=== PATIENT | male | born 1990 | race Caucasian/White ===

== ENCOUNTER 2018-04-07 12:08 | Emergency (ER) | payer MEDICAID ==
[~2018-04-07] VITALS: Ht 180.3 cm; Wt 73.0 kg
[~2018-04-07 12:08] MED LIST: FLUT16SP2 NS; NO HOME MEDS
[2018-04-07 12:12] VITALS: BP 117/84
[2018-04-07] MEDS ORDERED: PENI500T2 PO (12:20)
== END 2018-04-07 12:37 | disposition home or self-care (01) ==
LOC: ER 12:08
DX: K04.7 Periapical abscess without sinus (principal); Z88.1 Allergy status to other antibiotic agents; Z88.8 Allergy status to other drugs, medicaments and biological substances
CPT/HCPCS: 99283

== ENCOUNTER 2018-11-20 01:34 | Emergency (ER) | payer MEDICAID ==
[~2018-11-20] VITALS: Ht 180.3 cm; Wt 68.0 kg
[2018-11-20 01:44] VITALS: BP 123/76
[2018-11-20] MEDS ORDERED: CYCL-1 PO (02:03)
== END 2018-11-20 02:19 | disposition home or self-care (01) ==
LOC: ER 01:35
DX: M62.830 Muscle spasm of back (principal); M54.6 Pain in thoracic spine; F41.9 Anxiety disorder, unspecified; F32.9 Major depressive disorder, single episode, unspecified; F17.210 Nicotine dependence, cigarettes, uncomplicated; Z90.49 Acquired absence of other specified parts of digestive tract; Z88.1 Allergy status to other antibiotic agents; Z88.8 Allergy status to other drugs, medicaments and biological substances; Z79.899 Other long term (current) drug therapy
CPT/HCPCS: 99283

== ENCOUNTER 2020-07-06 19:30 | Emergency (ER) | payer MEDICAID ==
[~2020-07-06] VITALS: Ht 175.3 cm; Wt 78.5 kg
[~2020-07-06 19:30] MED LIST changes: +CYCL-1 PO
[2020-07-06] MEDS ORDERED: proparacaine 0.5% ophthalmic drops 15ml EACHEYE ONE (21:30)
[2020-07-06] MEDS ORDERED: ERYT1OIN6 LEFTEYE (22:18)
[2020-07-06] MEDS ORDERED: erythromycin ophthalmic ointment 1gm tube LEFTEYE ONE (22:20)
[2020-07-06 22:53] VITALS: BP 141/97
== END 2020-07-06 22:55 | disposition home or self-care (01) ==
LOC: ER 19:30
DX: H57.12 Ocular pain, left eye (principal); F41.9 Anxiety disorder, unspecified; F32.9 Major depressive disorder, single episode, unspecified; Z90.89 Acquired absence of other organs; Z88.1 Allergy status to other antibiotic agents; Z88.8 Allergy status to other drugs, medicaments and biological substances; Z79.2 Long term (current) use of antibiotics; Z79.899 Other long term (current) drug therapy
CPT/HCPCS: 99283

== ENCOUNTER 2021-03-16 11:34 | Emergency (ER) | payer MEDICAID ==
[~2021-03-16] VITALS: Ht 180.3 cm; Wt 88.6 kg
[2021-03-16 11:35] VITALS: BP 142/102
[2021-03-16] MEDS ORDERED: ketorolac tromethamine 15mg/ml inj. IM ONE (11:50)
[2021-03-16] MEDS ORDERED: ketorolac trometh. 30mg/ml inj. IM ONE (11:50)
== END 2021-03-16 12:24 | disposition home or self-care (01) ==
LOC: ER 11:34
DX: M54.31 Sciatica, right side (principal); M54.32 Sciatica, left side; F41.9 Anxiety disorder, unspecified; F32.9 Major depressive disorder, single episode, unspecified; Z90.89 Acquired absence of other organs; Z88.1 Allergy status to other antibiotic agents; Z88.8 Allergy status to other drugs, medicaments and biological substances; Z79.899 Other long term (current) drug therapy
CPT/HCPCS: 96372; 99283; J1885

== ENCOUNTER 2021-06-13 00:28 | Emergency (ER) | payer MEDICAID ==
[~2021-06-13] VITALS: Ht 175.3 cm; Wt 88.6 kg
[2021-06-13 00:33] VITALS: BP 136/86
[2021-06-13 01:20] LABS: BASOPHILS # (AUTO) 0.1 X10'3 (0-0.2); BASOPHILS % (AUTO) 0.9 % (0-1); EOSINOPHILS # (AUTO) 0.3 X10'3 (0-0.9); EOSINOPHILS % (AUTO) 3.6 % (0-6); HEMATOCRIT 41.6 % (42.0-52.0); HEMOGLOBIN 14.6 g/dl (14.0-17.9); LYMPHOCYTES # (AUTO) 2.9 X10'3 (1.1-4.8); LYMPHOCYTES % (AUTO) 35.6 % (21-51); MEAN CORPUSCULAR HEMOGLOBIN 33.8 PG (27.0-31.0); MEAN CORPUSCULAR HGB CONC 35.1 g/dL (33.0-36.5); MEAN CORPUSCULAR VOLUME 96.3 FL (78-98); MEAN PLATELET VOLUME 8.5 FL (7.4-10.4); MONOCYTES # (AUTO) 0.7 X10'3 (0-0.9); MONOCYTES % (AUTO) 8.6 % (2-12); NEUTROPHILS # (AUTO) 4.1 X10'3 (1.8-7.7); NEUTROPHILS % (AUTO) 51.3 % (42-75); PLATELET COUNT 110 X10'3 (140-440); RED BLOOD COUNT 4.33 X10'6 (4.70-6.10); RED CELL DISTRIBUTION WIDTH 13.1 % (11.5-14.5)
[2021-06-13 01:29] LABS: ALANINE AMINOTRANSFERASE 32 U/L (12-78); ALBUMIN 3.7 G/DL (3.4-5.0); ALBUMIN/GLOBULIN RATIO 1.2 (1.1-1.5); ALKALINE PHOSPHATASE 54 IU/L (46-116); ANION GAP 14 (8-16); ASPARTATE AMINO TRANSFERASE 10 U/L (10-37); BILIRUBIN,TOTAL 0.4 MG/DL (0.1-1.0); BLOOD UREA NITROGEN 15 MG/DL (7-18); BUN/CREATININE RATIO 13.6 (5.4-32.0); CALCIUM 8.8 MG/DL (8.5-10.1); CHLORIDE 104 MMOL/L (99-107); GLUCOSE 111 MG/DL (70-104); SODIUM 141 MMOL/L (135-145); TOTAL PROTEIN 6.9 G/DL (6.4-8.2); eGFR 78 ML/MIN
[2021-06-13 01:37] LABS: POTASSIUM 3.5 MMOL/L (3.5-5.1)
[2021-06-13] MEDS ORDERED: LIDO20SO16 PO (03:23)
== END 2021-06-13 03:25 | disposition home or self-care (01) ==
LOC: ER 00:28
DX: J02.9 Acute pharyngitis, unspecified (principal); R06.02 Shortness of breath; R11.2 Nausea with vomiting, unspecified; F41.9 Anxiety disorder, unspecified; F32.A Depression, unspecified; Z90.89 Acquired absence of other organs; Z88.1 Allergy status to other antibiotic agents; Z88.8 Allergy status to other drugs, medicaments and biological substances; Z79.899 Other long term (current) drug therapy
CPT/HCPCS: 36415; 71045; 80053; 83880; 84484; 85025; 87081; 87880; 93005; 99285

== ENCOUNTER 2022-01-16 22:54 | Emergency (ER) | payer MEDICAID ==
[~2022-01-16] VITALS: Ht 175.3 cm; Wt 78.6 kg
[~2022-01-16 22:54] MED LIST changes: +LIDO20SO16 PO
[2022-01-16 23:01] VITALS: BP 124/84
[2022-01-17] MEDS ORDERED: ondansetron 4mg rapidly disintigrating tab PO ONE (00:05)
[2022-01-17] MEDS ORDERED: acetaminophen 325mg tablet PO ONE (00:05)
== END 2022-01-17 00:42 | disposition home or self-care (01) ==
LOC: ER 22:54
DX: F10.920 Alcohol use, unspecified with intoxication, uncomplicated (principal); F31.9 Bipolar disorder, unspecified; G89.29 Other chronic pain; M54.9 Dorsalgia, unspecified; Z88.1 Allergy status to other antibiotic agents; Z88.8 Allergy status to other drugs, medicaments and biological substances; Z79.899 Other long term (current) drug therapy
CPT/HCPCS: 99283

== ENCOUNTER 2022-04-14 20:13 | Emergency (ER) | payer MEDICAID ==
[~2022-04-14] VITALS: Ht 175.3 cm; Wt 80.0 kg
[2022-04-14 20:29] VITALS: BP 140/96
[2022-04-14 20:31] LABS: BASOPHILS # (AUTO) 0.1 X10'3 (0-0.2); BASOPHILS % (AUTO) 0.8 % (0-1); EOSINOPHILS # (AUTO) 0.2 X10'3 (0-0.9); EOSINOPHILS % (AUTO) 2.5 % (0-6); HEMOGLOBIN 15.7 g/dl (14.0-17.9); LYMPHOCYTES # (AUTO) 4.1 X10'3 (1.1-4.8); MEAN CORPUSCULAR HEMOGLOBIN 33.3 PG (27.0-31.0); MEAN CORPUSCULAR HGB CONC 34.8 g/dL (33.0-36.5); MEAN CORPUSCULAR VOLUME 95.9 FL (78-98); MEAN PLATELET VOLUME 8.1 FL (7.4-10.4); MONOCYTES # (AUTO) 0.6 X10'3 (0-0.9); NEUTROPHILS % (AUTO) 44.7 % (42-75); PLATELET COUNT 89 X10'3 (140-440); RED CELL DISTRIBUTION WIDTH 12.7 % (11.5-14.5)
[2022-04-14 20:45] LABS: ALANINE AMINOTRANSFERASE 31 U/L (12-78); ALBUMIN 4.5 G/DL (3.4-5.0); ALBUMIN/GLOBULIN RATIO 1.5 (1.1-1.5); ALKALINE PHOSPHATASE 46 IU/L (46-116); ANION GAP 12 (8-16); ASPARTATE AMINO TRANSFERASE 21 U/L (10-37); BILIRUBIN,TOTAL 0.5 MG/DL (0.1-1.0); BLOOD UREA NITROGEN 15 MG/DL (7-18); BUN/CREATININE RATIO 12.4 (5.4-32.0); CALCIUM 9.7 MG/DL (8.5-10.1); CHLORIDE 102 MMOL/L (99-107); CREATININE 1.21 MG/DL (0.60-1.10); GLUCOSE 107 MG/DL (70-104); POTASSIUM 3.3 MMOL/L (3.5-5.1); SODIUM 137 MMOL/L (135-145); TOTAL CARBON DIOXIDE 23.5 MMOL/L (24-32); TOTAL PROTEIN 7.6 G/DL (6.4-8.2); eGFR 69 ML/MIN
[2022-04-14 20:52] LABS: MAGNESIUM 2.3 MG/DL (1.5-2.4)
== END 2022-04-14 21:52 | disposition home or self-care (01) ==
LOC: ER 20:14
DX: R07.89 Other chest pain (principal); R00.2 Palpitations; G89.29 Other chronic pain; F41.9 Anxiety disorder, unspecified; F32.9 Major depressive disorder, single episode, unspecified; Z90.49 Acquired absence of other specified parts of digestive tract; Z72.89 Other problems related to lifestyle; Z79.899 Other long term (current) drug therapy
CPT/HCPCS: 36415; 80053; 83735; 83880; 84484; 85025; 93005; 99284

== ENCOUNTER 2023-12-29 22:31 | Emergency (ER) | payer MEDICAID ==
[~2023-12-29] VITALS: Ht 170.2 cm; Wt 70.0 kg
[2023-12-29 22:56] VITALS: BP 113/74; PULSE 85; RESP 16; TEMP 98.4; O2SAT 99
[2023-12-30 01:08] LABS: BILIRUBIN,URINE NEGATIVE (Neg); CLARITY,URINE CLEAR (Clear); COLOR,URINE YELLOW (Yellow); GLUCOSE, URINE NEGATIVE (Neg); KETONES,URINE NEGATIVE (Neg); LEUKOCYTE ESTERASE ,URINE NEGATIVE (Neg); NITRITES, URINE NEGATIVE (Neg); OCCULT BLOOD,URINE NEGATIVE (Neg); PROTEIN,URINE NEGATIVE (Neg); UROBILINOGEN,URINE 0.2 E.U/dL (0.2-1.0)
[2023-12-30 01:20] LABS: UA COLLECTION TYPE CLN CATCH MIDSTREAM
[2023-12-30] MEDS ORDERED: DOXY-460 PO (01:37)
[2023-12-30] MEDS: DOXYCYCLINE 100MG CAPSULE PO STA (02:02)
[2023-12-30] MEDS: CefTRIAXone 500MG IM Kit w/LIDOcaine IM STA (02:03)
[2024-01-02 05:20] LABS: CHLAMYDIA TRACHOMATIS, NAA Negative (Negative)
== END 2023-12-30 02:08 | disposition home or self-care (01) ==
LOC: ER 22:32
DX: N34.2 Other urethritis (principal); G89.29 Other chronic pain; M54.9 Dorsalgia, unspecified; F41.9 Anxiety disorder, unspecified; F32.A Depression, unspecified; Z88.1 Allergy status to other antibiotic agents; Z88.8 Allergy status to other drugs, medicaments and biological substances; Z79.51 Long term (current) use of inhaled steroids; Z79.899 Other long term (current) drug therapy; Z72.89 Other problems related to lifestyle; Z90.49 Acquired absence of other specified parts of digestive tract
CPT/HCPCS: 36415; 81003; 87491; 87591; 93005; 96372; 99284; J0696

== ENCOUNTER 2024-11-07 06:09 | Emergency (ER) | payer MEDICAID ==
[~2024-11-07] VITALS: Ht 170.2 cm; Wt 53.9 kg
--- NOTE | 2024-11-07 06:45 | Physician Documentation ---
History of Present Illness ~ Chief Complaint: Back Pain Stated Complaint: BACK PAIN Time Seen by MD: 06:43 Primary Medical Doctor: none HPI 34-year-old male, history of prior back surgery presenting with back pain and chest pain. He presents with 2 concerns today: 1. Intermittent shortness of breath. He tells me that over the past several weeks or possibly longer he has had intermittent episodes of shortness of breath. He states that it comes on unexpectedly, and in between he is breathing normally. He states it sometimes he feels a sensation of tightness in his chest, points to the right and left lateral sides. He tells me that 1 week ago he went to the [facility] Emergency Department, and had an evaluation including a normal chest x-ray, normal EKG, and normal blood testing. He was not treated with antibiotics or other specific treatments, was told everything looks okay. He came in today because when he woke up this morning he had an episode shortness of breath. He tells me that he quit vaping recently, and is concerned that he may have a collapsed lung or lung infection. He reports a history of childhood asthma, but no other history of lung issues. No fevers, productive cough, or current chest pain. No cardiac history. 2. right-sided back pain. He tells me that in the past several weeks he has had right lower back pain. He tells me that he has a history of left-sided sciatica and that this feels similar on the right side. It is located in the right lower back and buttocks region, and he has pain radiating down his right leg to the foot. No tingling or numbness. No weakness. No difficulty walking. No fe vers. No bowel or bladder changes. He has seen his doctor about this, and has undergone several treatments including IM Toradol, muscle relaxants, and gabapentin. He denies any new or different changes to this today. Medication Reconciliation Allergies: Coded Allergies: clindamycin (Unverified Allergy, Unknown, 11/07/24) promethazine (Unverified Allergy, Unknown, 11/07/24) Scheduled Fluticasone Propionate (Flonase), 16 GM NS DAILY Lidocaine Hcl (Xylocaine Viscous), 5 ML PO Q2H PRN SORE THROAT Scheduled PRN Cyclobenzaprine* (Cyclobenzaprine*), 1 TABLET PO Q8H PRN for muscle spasms Miscellaneous Medications Home Med List (No Home Medications), (Reported) Past Medical History Past Medical History: Chronic Back Pain, Anxiety, Depression Past Surgical History: appendectomy Alcohol Use: Occasionally Drug Use: none Lives with: Spouse Lives In: Home Occupation: employed Review of Systems Constitutional: Denies: fever Respiratory: Reports: shortness of breath Cardiovascular: Reports: chest pain Gastrointestinal: Denies: abdominal pain, vomiting Neurological: Denies: left sided numbness, right sided numbness, left sided weakness, right sided weakness, problems walking Musculoskeletal: Reports: back pain Physical Exam Physical Exam Vital Signs: Temperature: 96.3, Source: Temporal, Heart Rate: 62, Respiratory Rate: 15, BP: 120/79, Pulse Oximetry: 100, Weight: 53.850 Physical Exam General: This is a pleasant and overall well-appearing young man sitting calmly in bed HEENT: Atraumatic, oropharynx is moist Heart: Regular rate and rhythm, normal-appearing peripheral perfusion, normal right radial pulse Lungs: Clear breath sounds bilateral, normal work of breathing, normal oxygen saturation on room air. No coughing noted while I am in the room Abdomen: Soft, nondistended, nontender all quadrants Extremities: Warm and well-perfused, no edema or posterior calf tenderness Neuro: Alert and oriented, normal sensation to light touch in the right leg. He is able to stand on his toes and on his heels with the right leg. Ambulates without abnormality or difficulty Psychiatric: Calm and cooperative with exam Progress Results/Orders Results/Orders Orders - DARIEN CHAVEZ MD Chest,Two Views (11/07/24 07:04) Completed Orders - DARIEN CHAVEZ MD Chest,Two Views (11/07/24 07:04) Ketorolac Trometh 30mg/Ml Vial (Toradol (11/07/24 07:05) Electrocardiogram (11/07/24 07:08) Medications Received in ER Medications (Trade) Dose Ordered Sig/Laura Route PRN Reason Start Time Stop Time Status Last Admin Dose Admin (Toradol inj. 30mg/ml) 30 mg ONCE ONCE IM 11/07/24 07:05 11/07/24 07:06 DC 11/07/24 07:21 30 MG Vital Signs 11/07/24 11/07/24 06:10 07:21 Temp 96.3 Pulse 62 Resp 15 18 B/P (MAP) 120/79 Pulse Ox 100 EKG/XRAY/CT/US/VASC/MRI EKG : Additional Comment I personally interpreted the EKG and this shows: Sinus bradycardia, rate 57, QTC 419, no STEMI or acute ischemic changes Chest X-Ray : Additional Comments I personally reviewed the x-ray, and it shows: The chest x-ray does not show a pneumothorax, focal consolidation, pulmonary edema. Normal mediastinum. Medical Decision Making Additional info obtained from: old records Findings The patient has been seen here in the emergency department in the past for back pain, which was thought to be sciatica Differential Dx:Considerations: Include: DJD, Musculoskeletal pain, Strain, Urolithiasis Differential Diagnosis Differential includes sciatica, herniated disc, lumbar radiculopathy. Doubt cauda equina or epidural abscess Chest pain differential includes anxiety, pneumonia, collapsed lung, vaping related disorder, chest wall pain Assessment 34-year-old male with a history of sciatica who presents with shortness of breath episodes and right low back pain with radiculopathy. Per his history, he has no concerning findings to suggest a dangerous spinal process including a doubt cauda equina or epidural abscess. His symptoms do seem consistent with sciatica. He was given a shot of Toradol. He already is on multiple other medications for this. I do not feel that emergent back imaging is indicated. He also reports intermittent episodes of shortness of breath and chest tightness . He is currently asymptomatic. He had a full workup done about a week ago at an outside hospital that was unremarkable. Chest x-ray today does not show any dangerous findings. EKG is reassuring. Later he tells me that he is getting divorce, in his symptoms fit the timeline of his stress related to divorce. I suspect that his symptoms are stress related. We discussed how stress can cause somatic symptoms. He will follow up with his primary care doctor for further evaluation and treatment. Departure Time of Disposition: 07:19 Disposition: 01 HOME / SELF CARE / HOMELESS Impression: Primary Impression: Sciatica Additional Impression: Shortness of breath Condition: Stable Discharge Instructions: Sciatica Departure Forms: Excuse form Work or School Excused From: Work Excuse beginning now through the following date: Nov 08, 2024 May Return but still avoid physical Activity from now until: Nov 08, 2024 May Return to full physical activity as of: Nov 08, 2024 Referrals: NO PRIMARY CARE PROVIDER (PCP) Education Educated: Patient Educated regarding: diagnosis, treatment, need for follow up Signature Scribe Signature: na Attestation: DARIEN Slaughter MD Nov 07, 2024 06:45
--- NOTE | 2024-11-07 07:15 | ELECTROCARDIOGRAPH REPORT ---
[facility] Test Date: 2024-11-07 Test Time: 07:13:22 Pat Name: MICHELA SHEN Department: [facility]ER Patient ID: [facility]-[id number] Room: Gender: M Component Lab Tech: : [id number] Requested By: DARIEN CHAVEZ Order Number: [id number] Reading MD: Measurements Intervals [place] Rate: 57 P: 42 IL: 124 QRS: -16 QRSD: 121 T: 30 QT: 430 QTc: 419 Interpretive Statements Sinus bradycardia Nonspecific intraventricular conduction delay ST elev, probable normal early repol pattern Please click the below link to view image of tracing.
[2024-11-07] MEDS: ketorolac trometh 30MG/ML vial 30 MG/ML VIAL IM ONE (07:21)
--- NOTE | 2024-11-07 07:23 | RADIOLOGY REPORT ---
CHEST RADIOGRAPH Indication: Chest pain, shortness of breath, history of vaping Technique: Frontal and lateral view of the chest was obtained Comparison: None FINDINGS: Lines and Tubes: None Lungs: Clear Pleura: No effusion. No pneumothorax. Cardiomediastinal contours: Unremarkable Bones: Unremarkable IMPRESSION: 1. No evidence of acute disease.
[2024-11-07 07:34] VITALS: BP 119/73; PULSE 80; RESP 18; TEMP 96.3; O2SAT 99
== END 2024-11-07 07:35 | disposition home or self-care (01) ==
LOC: ER 06:09
DX: M54.31 Sciatica, right side (principal); R06.02 Shortness of breath; R07.89 Other chest pain; Z88.1 Allergy status to other antibiotic agents; Z90.49 Acquired absence of other specified parts of digestive tract
CPT/HCPCS: 71046; 93005; 96372; 99283; J1885

== ENCOUNTER 2024-11-14 09:27 | Emergency (ER) | payer MEDICAID ==
[~2024-11-14] VITALS: Ht 167.6 cm; Wt 66.9 kg
--- NOTE | 2024-11-14 11:18 | Physician Documentation ---
History of Present Illness ~ Chief Complaint: Mental Health Eval Stated Complaint: SI Time Seen by MD: 11:17 Primary Medical Doctor: none Mode of Arrival: Ambulatory HPI 34-year-old male presenting with suicidal ideation He tells me that recently he has been having thoughts of self-harm. He tells me that he has been thinking about overdosing or walking out into traffic. He did do some superficial cutting on both of his arms recently, but denies any significant injuries or ingestion attempt. He does report a history of 1 past overdose attempt a long time ago. He denies any acute medical concerns today. Medication Reconciliation Allergies: Coded Allergies: clindamycin (Unverified Allergy, Unknown, 11/14/24) promethazine (Unverified Allergy, Unknown, 11/14/24) Scheduled Fluticasone Propionate (Flonase), 16 GM NS DAILY Lidocaine Hcl (Xylocaine Viscous), 5 ML PO Q2H PRN SORE THROAT Scheduled PRN Cyclobenzaprine* (Cyclobenzaprine*), 1 TABLET PO Q8H PRN for muscle spasms Miscellaneous Medications Home Med List (No Home Medications), (Reported) Past Medical History Past Medical History: Chronic Back Pain, Anxiety, Depression Past Surgical History: appendectomy Alcohol Use: Occasionally Drug Use: none Lives with: Spouse Lives In: Home Occupation: employed Review of Systems Psychiatric: Reports: suicidal Physical Exam Vital Signs: Temperature: 97.7, Source: Oral, Heart Rate: 65, Respiratory Rate: 15, BP: 125/89, Pulse Oximetry: 100, Weight: 66.900 Oxygen Flow Rate: 0 Physical Exam General: This is a thin young male sitting quietly in bed, father at bedside HEENT: Atraumatic, oropharynx is moist Heart: Regular rate and rhythm, normal-appearing peripheral perfusion Lungs: normal work of breathing, normal oxygen saturation on room air Extremities: Warm and well-perfused Bilateral upper arms have linear superficial lacerations, no large open wounds or bleeding Neuro: Alert and oriented Psychiatric: Speaks quietly, avoids eye contact, does endorse thoughts of self- harm with a specific plan, does not appear to be responding to internal stimuli Progress Results/Orders Results/Orders Orders - DARIEN CHAVEZ MD Med Rec (11/14/24 11:24) 1799.11 (11/14/24 11:24) Close Observation Level (11/14/24 11:24) Covid19 Binax Poc Result Entry (11/14/24 11:24) Substance Use Navigator (11/14/24 11:24) Regular Diet (11/14/24 Dinner) AST (11/14/24 17:22) ALT (11/14/24 17:22) ALP (11/14/24 17:22) Cbc/Diff (11/14/24 17:33) Completed Orders - DARIEN CHAVEZ MD Cbc/Diff (11/14/24 11:24) Drug Screen, Urine (11/14/24 11:24) Ethanol (11/14/24 11:24) TSH (11/14/24 11:24) BMP (11/14/24 11:24) Nicotine 21mg Patch -24hr (Habitrol Patc (11/14/24 12:05) Ua With Microscopic (11/14/24 10:21) Medications Received in ER Medications (Trade) Dose Ordered Sig/Laura Route PRN Reason Start Time Stop Time Status Last Admin Dose Admin (Habitrol patch) 1 patch ONCE ONCE TD 11/14/24 12:05 11/14/24 12:06 DC 11/14/24 12:09 1 PATCH Vital Signs 11/14/24 11/14/24 11/14/24 09:30 10:13 13:07 Temp 97.7 Pulse 65 Resp 18 15 16 B/P (MAP) 125/89 Pulse Ox 100 O2 Flow Rate 0 Laboratory Tests Test 11/14/24 10:21 11/14/24 11:39 11/14/24 13:50 11/14/24 17:31 Urine Specimen Description Urinal Urine Color Yellow Urine Clarity Slightly cloudy Urine pH 8.0 Urine Specific [place] 1.020 Urine Protein Trace Urine Glucose (UA) 100 H Urine Ketones Trace H Urine Occult Blood Negative Urine Nitrite Negative Urine Bilirubin Small Urine Urobilinogen >=8.0 H Urine Leukocyte Esterase Negative Urine RBC 3-10 Urine WBC 0-4 Urine Squamous Epithelial Cells Few Urine Amorphous Phosphates 4+ Urine Bacteria Few Urine Coarse Granular Casts 0-3 Urine Mucus Moderate Urine Sperm Few Volume Urine Centrifuged 10 ml Urine Comment Urine Opiates Screen Negative Urine Methadone Screen Negative Urine Fentanyl Screen Negative Urine Barbiturates Screen Negative Urine Phencyclidine Screen Negative Urine Amphetamines Screen Negative Urine Benzodiazepines Screen Negative Urine Cocaine Screen Negative Urine Cannabinoids Screen Negative Drug Screen Comment White Blood Count 7.8 Red Blood Count 4.19 L Hemoglobin 13.9 L Hematocrit 39.9 L Mean Corpuscular Volume 95.1 Mean Corpuscular Hemoglobin 33.1 H Mean Corpuscular Hemoglobin Concent 34.8 Red Cell Distribution Width 12.7 Platelet Count 88 L Mean Platelet Volume 8.4 Neutrophils (%) (Auto) 55.5 Lymphocytes (%) (Auto) 34.2 Monocytes (%) (Auto) 6.8 Eosinophils (%) (Auto) 2.7 Basophils (%) (Auto) 0.8 Neutrophils # (Auto) 4.3 Lymphocytes # (Auto) 2.7 Monocytes # (Auto) 0.5 Eosinophils # (Auto) 0.2 Basophils # (Auto) 0.1 CBC Comment Sodium Level 139 Potassium Level 3.4 L Chloride Level 106 Carbon Dioxide Level 24.7 Anion Gap 8 Blood Urea Nitrogen 12 Creatinine 1.29 H Estimated GFR/1.73 m2 63 BUN/Creatinine Ratio 9.3 L Glucose Level 103 Calcium Level 8.5 Albumin 4.0 Thyroid Stimulating Hormone (TSH) 1.22 Chemistry Comments Ethyl Alcohol Level < 10 SARS-CoV-2 Antigen (Rapid) Negative Re-Evaluation Re-Evaluation : Progress The patient is medically cleared for mental health evaluation Consults/PCP Consults/PCP : Additional Comment Consult: Mental health team evaluated the patient, feel he is a danger to himself and he was placed on a 5150 Medical Decision Making Differential Diagnosis The patient presents with suicidal ideations with a plan. He does not appear acutely intoxicated. He has no acute medical concerns. Overall he is clearly making statements about self-harm and so he was placed on an mental health hold. Mental health screening labs are unremarkable. He is medically cleared for mental health evaluation. He was evaluated by the mental health team, who will place him on a 5150, pending further evaluation and treatment. Departure Impression: Primary Impression: Suicidal ideation Additional Instructions: Transfer orders for [facility]: At this time there is no evidence of an emergent medical condition that would preclude (admission/transfer) to a psychiatric unit via [facility] protocol for further psychiatric, as well as medical evaluation and treatment. At this time I have no reason to believe that transfer via [facility] protocol would have serious medical compromise in the patient's health. Departure Forms: Excuse form Work or School Excused From: Work Excuse beginning now through the following date: Nov 18, 2024 Additional Instructions: Please excuse Miguelangel Abdullahi, he will need to be absent from work due to medical reasons, and can return to full duty on November 18 Referrals: NO PRIMARY CARE PROVIDER (PCP) Signature Scribe Signature: na Attestation: DARIEN Slaughter MD Nov 14, 2024 11:18
[2024-11-14 11:48] LABS: MEAN PLATELET VOLUME 8.4 FL (7.4-10.4); RED CELL DISTRIBUTION WIDTH 12.7 % (11.5-14.5)
[2024-11-14] MEDS: nicotine 21mg patch - 24 hr TD ONE (12:09)
[2024-11-14 12:15] LABS: CREATININE 1.29 MG/DL (0.60-1.10); TOTAL CARBON DIOXIDE 24.7 MMOL/L (24-32); eCRCL 71 ML/MIN; eGFR 63 ML/MIN
[2024-11-14 12:25] LABS: LEUKOCYTE ESTERASE ,URINE NEGATIVE (Neg); NITRITES, URINE NEGATIVE (Neg); OCCULT BLOOD,URINE NEGATIVE (Neg)
[2024-11-14 12:29] LABS: ETHANOL < 10 MG/DL (<10)
[2024-11-14 12:30] LABS: URINE AMPHETAMINE SCREEN NEGATIVE (Neg); URINE BARBITUATE SCREEN NEGATIVE (Neg); URINE BENZODIAZEPINES SCREEN NEGATIVE (Neg); URINE CANNABINOID SCREEN NEGATIVE (Neg); URINE COCAINE SCREEN NEGATIVE (Neg); URINE METHADONE SCREEN NEGATIVE (Neg); URINE OPIATE SCREEN NEGATIVE (Neg); URINE PHENCYCLIDINE SCREEN NEGATIVE (Neg)
[2024-11-14 12:31] LABS: UA COLLECTION TYPE URINAL
[2024-11-14 12:34] LABS: MUCUS STRANDS MODERATE /LPF (Neg)
[2024-11-14 12:35] LABS: AMORPHOUS PHOSPHATES 4+; COARSE GRANULAR CAST 0-3 /LPF (NEGATIVE); SPERM FEW /HPF (NEGATIVE); SQUAMOUS EPITHELIAL CELL,UR FEW /LPF (FEW)
[2024-11-14] MEDS: NICOTINE POLACRILEX 2 MG LOZENGE BC PRN (18:46)
[2024-11-14 18:53] LABS: MEAN PLATELET VOLUME 8.9 FL (7.4-10.4); RED CELL DISTRIBUTION WIDTH 13.2 % (11.5-14.5)
[2024-11-14] MEDS: potassium Cl 20 mEq SR tablet PO STA (21:01)
[2024-11-15 05:41] VITALS: TEMP 97.3
[2024-11-15 12:53] VITALS: BP 97/62; PULSE 14; RESP 16; O2SAT 98
== END 2024-11-15 12:56 ==
LOC: ER 09:27
DX: R45.851 Suicidal ideations (principal); F41.9 Anxiety disorder, unspecified; F32.A Depression, unspecified; Z88.1 Allergy status to other antibiotic agents; Z90.49 Acquired absence of other specified parts of digestive tract; Z20.822 Contact with and (suspected) exposure to COVID-19
CPT/HCPCS: 36415; 80048; 80305; 80320; 81001; 84075; 84443; 84450; 84460; 85025; 87811; 99285; Q0177